=== PATIENT | male | born 1990 | race Caucasian/White ===

== ENCOUNTER 2016-10-14 00:55 | Emergency (ER) | payer BC ==
[~2016-10-14] VITALS: Ht 162.6 cm; Wt 90.0 kg
[2016-10-14 01:25] VITALS: BP 97/53
[2016-10-14 01:53] LABS: CHLORIDE 101 mEq/L (98-107)
[2016-10-14 01:59] LABS: CARBON DIOXIDE 29 mEq/L (21-32)
[2016-10-14 02:05] LABS: BASOPHILS % 0.1 % (0.0-2.0); EOSINOPHILS % 2.5 % (0.0-5.0); HEMOGLOBIN. 13.4 g/dL (14.0-18.0); LYMPHOCYTES % 24.6 % (20.0-50.0); MEAN CORPUSCULAR HEMOGLOBIN 29.9 pg (28.0-32.0); MEAN CORPUSCULAR VOLUME 89.3 fL (80.0-94.0); MEAN PLATELET VOLUME 10.9 fl (7.4-10.4); MONOCYTES % 6.7 % (2.0-8.0); NEUTROPHILS % 66.1 % (40.0-76.0); PLATELET 142 x1000/uL (130-400); RED BLOOD CELL COUNT 4.48 mill/uL (4.7-6.1); RED CELL DISTRIBUTION WIDTH 14.7 % (11.6-14.6)
[2016-10-14 03:53] LABS: CLARITY URINE CLEAR (CLEAR); COLOR URINE DARK YELLOW (YELLOW); GLUCOSE URINE NEGATIVE (NEGATIVE); KETONES URINE 3+ (NEGATIVE); LEUKOCYTE ESTERASE URINE NEGATIVE (NEGATIVE); NITRITE URINE NEGATIVE (NEGATIVE); OCCULT BLOOD URINE NEGATIVE (NEGATIVE); PROTEIN URINE NEGATIVE (NEGATIVE); SPECIFIC GRAVITY URINE 1.019 (1.005-1.030); UROBILINOGEN URINE 0.2 E.U./dL (0.2-1.0)
== END 2016-10-14 04:44 | disposition home or self-care (01) ==
LOC: ER 00:55
DX: R53.1 Weakness (principal); R42 Dizziness and giddiness
CPT/HCPCS: 36415; 71010; 80048; 81003; 85025; 93005; 99285